=== PATIENT | male | born 1975 | race Caucasian/White ===

== ENCOUNTER 2019-12-30 01:07 | Emergency (ER) | payer MEDICAID ==
[~2019-12-30] VITALS: Ht 170.2 cm; Wt 72.7 kg
[2019-12-30] MEDS ORDERED: NALOXONE 0.4 MG/ML VIAL. ONE (01:12)
[2019-12-30] MEDS ORDERED: IV NORMAL SALINE 1000ML BAG 1,000 ML IV ONE (01:15)
[2019-12-30 01:23] LABS: BASO % 0 % (0-3); EOS # 0.1 x10^3/uL (0.0-0.7); EOS % 2 % (0-3); HEMATOCRIT 39.6 % (39.0-53.0); HEMOGLOBIN 14.2 g/dL (13.0-17.5); LYMPH # 1.7 x10^3/uL (1.0-4.8); LYMPH % 26 % (24-48); MEAN CORPUSCULAR HEMOGLOBIN 31 pg (25-35); MEAN CORPUSCULAR HGB CONC 36 g/dL (31-37); MEAN CORPUSCULAR VOLUME 88 fL (79-100); MONO # 0.7 x10^3/uL (0.0-1.1); MONO % 10 % (0-9); NEUT # 4.1 x10^3/uL (1.8-7.7); NEUT % 62 % (31-73); PLATELET COUNT 170 x10^3/uL (140-400); RED BLOOD COUNT 4.52 x10^6/uL (4.30-5.70); RED CELL DISTRIBUTION WIDTH 13.1 % (11.5-14.5); WHITE BLOOD COUNT 6.7 x10^3/uL (4.0-11.0)
[2019-12-30 01:32] LABS: CALCIUM 7.8 mg/dL (8.5-10.1); CREATININE 1.1 mg/dL (0.7-1.3); GFR 73.4; POTASSIUM 3.2 mmol/L (3.5-5.1)
[2019-12-30 01:37] LABS: ACETAMIN < 2 mcg/ml (10-30)
[2019-12-30 01:38] LABS: ALBUMIN 4.2 g/dL (3.4-5.0); ALBUMIN/GLOBULIN RATIO 1.6 (1.0-1.7); ETHANOL < 10 mg/dL (0-10); SALIC < 2.8 mg/dL (2.8-20.0); TOTAL PROTEIN 6.8 g/dL (6.4-8.2)
--- NOTE | 2019-12-30 01:54 | PHYS DOC ---
Past Medical History Past Medical History: Anxiety, Other Additional Past Medical Histor: DRUG ABUSE Past Surgical History: Other Additional Past Surgical Histo: BROKEN FINGER REPAIRED - RIGHT INDEX Smoking Status: Current Every Day Smoker Alcohol Use: None General Adult EDM: Chief Complaint: ALCOHOL INTOXICATION HPI: HPI: Patient is a 44 year old male brought by EMS with a chief complaint of altered mental status. EMS state that they found patient curled up in his home. Patient blood glucose was 142. Patient does have a history of drug abuse and alcohol use. Patient awaken to sternal rub per EMS. Patient able to maintain his oxygen saturation as well as strong gag reflex. Review of Systems: Review of Systems: Constitutional: Denies fever or chills. [] Eyes: Denies change in visual acuity. [] HENT: Denies nasal congestion or sore throat. [] Respiratory: Denies cough or shortness of breath. [] Cardiovascular: Denies chest pain or edema. [] GI: Denies abdominal pain, nausea, vomiting, bloody stools or diarrhea. [] Neurologic: Denies headache, focal weakness or sensory changes. [] Heart Score: Risk Factors: Risk Factors: DM, Current or recent (<one month) smoker, HTN, HLP, family history of CAD, obesity. Risk Scores: Score 0 - 3: 2.5% MACE over next 6 weeks - Discharge Home Score 4 - 6: 20.3% MACE over next 6 weeks - Admit for Clinical Observation Score 7 - 10: 72.7% MACE over next 6 weeks - Early Invasive Strategies Current Medications: Current Medications Medications (Trade) Dose Ordered Sig/Yury Start Time Stop Time Status Last Admin Dose Admin Naloxone HCl (Narcan) 0.4 mg 1X ONCE 12/30/19 02:00 12/30/19 02:01 Sodium Chloride 1,000 ml @ 1,000 mls/hr 1X ONCE 12/30/19 01:15 12/30/19 02:14 12/30/19 01:05 1,000 MLS/HR Allergies: Allergies: Allergies Coded Allergies Type Severity Reaction Last Updated Verified No Known Drug Allergies 12/30/19 No Physical Exam: PE: Constitutional: Well developed, well nourished, no acute distress, non-toxic appearance. [] HENT: Normocephalic, atraumatic Eyes: EOMI, pinpoint pupils Neck: Normal range of motion, Supple Cardiovascular:Heart rate regular rhythm Lungs & Thorax: Bilateral breath sounds clear to auscultation [] Abdomen: Bowel sounds normal, soft, no tenderness Extremities: No tenderness, ROM intact Neurologic: Alert and oriented X 3 Current Patient Data: Labs: Laboratory Tests Test 12/30/19 01:13 White Blood Count 6.7 x10^3/uL (4.0-11.0) Red Blood Count 4.52 x10^6/uL (4.30-5.70) Hemoglobin 14.2 g/dL (13.0-17.5) Hematocrit 39.6 % (39.0-53.0) Mean Corpuscular Volume 88 fL (79-100) Mean Corpuscular Hemoglobin 31 pg (25-35) Mean Corpuscular Hemoglobin Concent 36 g/dL (31-37) Red Cell Distribution Width 13.1 % (11.5-14.5) Platelet Count 170 x10^3/uL (140-400) Neutrophils (%) (Auto) 62 % (31-73) Lymphocytes (%) (Auto) 26 % (24-48) Monocytes (%) (Auto) 10 % (0-9) H Eosinophils (%) (Auto) 2 % (0-3) Basophils (%) (Auto) 0 % (0-3) Neutrophils # (Auto) 4.1 x10^3/uL (1.8-7.7) Lymphocytes # (Auto) 1.7 x10^3/uL (1.0-4.8) Monocytes # (Auto) 0.7 x10^3/uL (0.0-1.1) Eosinophils # (Auto) 0.1 x10^3/uL (0.0-0.7) Basophils # (Auto) 0.0 x10^3/uL (0.0-0.2) Sodium Level 140 mmol/L (136-145) Potassium Level 3.2 mmol/L (3.5-5.1) L Chloride Level 103 mmol/L (98-107) Carbon Dioxide Level 32 mmol/L (21-32) Anion Gap 5 (6-14) L Blood Urea Nitrogen 13 mg/dL (8-26) Creatinine 1.1 mg/dL (0.7-1.3) Estimated GFR (Cockcroft-Gault) 73.4 BUN/Creatinine Ratio 12 (6-20) Glucose Level 129 mg/dL (70-99) H Calcium Level 7.8 mg/dL (8.5-10.1) L Total Bilirubin 3.0 mg/dL (0.2-1.0) H Aspartate Amino Transferase (AST) 29 U/L (15-37) Alanine Aminotransferase (ALT) 21 U/L (16-63) Alkaline Phosphatase 86 U/L (46-116) Total Protein 6.8 g/dL (6.4-8.2) Albumin 4.2 g/dL (3.4-5.0) Albumin/Globulin Ratio 1.6 (1.0-1.7) Salicylates Level < 2.8 mg/dL (2.8-20.0) L Salicylate Last Dose Date Salicylate Last Dose Time Acetaminophen Level < 2 mcg/ml (10-30) L Acetaminophen Last Dose Date Acetaminophen Last Dose Time Ethyl Alcohol Level < 10 mg/dL (0-10) Laboratory Tests 12/30/19 01:13 Laboratory Tests 12/30/19 01:13 Vital Signs: Vital Signs Date Time Temp Pulse Resp B/P (MAP) Pulse Ox O2 Delivery O2 Flow Rate FiO2 12/30/19 01:16 97.6 54 18 113/72 (86) 96 Room Air 97.6 EKG: EKG: [] Radiology/Procedures: Radiology/Procedures: [] Course & Med Decision Making: Course & Med Decision Making Pertinent Labs reviewed. (See chart for details) Ordered labs, IV fluids, UDS, tox lab, IV fluids. Patient is given Narcan 0.4 mg IV. Once Narcan is given patient is alert and oriented x3 and answering questions appropriately. Labs are within normal limits. UDS is positive for benzos, opiates, cannabinoids, amphetamines. Patient was given another dose of Narcan 0.4 mg IV. Patient is now awake and answering questions appropriately. Patient was to be discharged home. We have contacted patient's mother who is coming to pick him up. Discussed results and plan of care with patient. Patient is instructed to follow up with PCP in one to 2 days. Appropriate discharge instructions given to patient to return to the ED or to seek immediate medical evaluation. Patient is instructed to return to the ED if symptoms worsen or if any concerns. Isabelle Disclaimer: Isabelle Disclaimer: This electronic medical record was generated, in whole or in part, using a voice recognition dictation system. Departure Departure Impression: Primary Impression: Polydrug abuse Disposition: 01 HOME, SELF-CARE Condition: IMPROVED Referrals: NO PCP (PCP) Patient Instructions: Drug Abuse, FAQs Additional Instructions: Please return to the ED if symptoms worsen or if any concerns. Please follow-up with PCP in 1 to 2 days. Justicifation of Admission Dx: Justifications for Admission: Justification of Admission Dx: SANCHEZ Mahoney DO Dec 30, 2019 01:54
[2019-12-30] MEDS ORDERED: NALOXONE 0.4 MG/ML VIAL. IV ONE ×2 (02:00→05:30)
[2019-12-30 02:30] LABS: BILIRUBIN,URINE SMALL (NEG); CLARITY,URINE CLEAR; COLOR,URINE AMBER; NITRITE,URINE NEGATIVE (NEG); PH,URINE 5.5 (<5.0-8.0); PROTEIN,URINE NEGATIVE (NEG-TRACE); UROBILINOGEN,URINE 0.2 mg/dL (0.2 mg/dL)
[2019-12-30 02:36] LABS: BARBITURATES NEG (NEG); BENZODIAZEPINES POS (NEG); CANNABINOIDS POS (NEG); COCAINE NEG (NEG); METHADONE NEG (NEG); OPIATES POS (NEG); PHENCYCLIDINE NEG (NEG)
[2019-12-30 02:37] LABS: AMPHETAMINE/METHAMPHETAMINE POS (NEG)
[2019-12-30 02:48] LABS: BACTERIA,URINE 0 /HPF (0-FEW); SQUAMOUS EPITHELIAL CELL,UR OCC /LPF
[2019-12-30] MEDS ORDERED: POTASSIUM CHLORIDE 20 MEQ TABLET.ER. PO ONE (03:00)
[2019-12-30 06:30] VITALS: BP 110/71
== END 2019-12-30 06:50 | disposition home or self-care (01) ==
LOC: ER 01:07
DX: F19.10 Other psychoactive substance abuse, uncomplicated (principal); R41.82 Altered mental status, unspecified; F41.9 Anxiety disorder, unspecified; F17.200 Nicotine dependence, unspecified, uncomplicated; Z98.890 Other specified postprocedural states
CPT/HCPCS: 36415; 80053; 80307; 80329; 81001; 85025; 87086; 96361; 96374; 96376; 99285; G0480; J2310; J7030